=== PATIENT | female | born 1995 | race Two or more races ===

== ENCOUNTER 2018-12-06 18:11 | Emergency (ER) | payer SELFPAY ==
[2018-12-06 19:00] LABS: ABSOLUTE EOSINOPHILS # (AUTO) 0.2 10^3/uL (0.0-0.6); ABSOLUTE LYMPHOCYTES (AUTO) 2.6 10^3/uL (0.5-4.7); ABSOLUTE MONOCYTES (AUTO) 0.6 10^3/uL (0.1-1.4); ABSOLUTE NEUT (AUTO) 4.1 10^3/uL (1.7-8.2); BASOPHILS % (AUTO) 0.5 % (0-2); EOSINOPHILS % (AUTO) 2.8 % (0-6); HEMATOCRIT 42.9 % (36.0-47.0); HEMOGLOBIN 14.8 g/dL (12.0-15.5); LYMPHOCYTES % (AUTO) 34.3 % (13-45); MEAN CORPUSCULAR HEMOGLOBIN 32.7 pg (27.0-33.4); MEAN CORPUSCULAR HGB CONC 34.5 g/dL (32.0-36.0); MEAN CORPUSCULAR VOLUME 95 fl (80-97); MONOCYTES % (AUTO) 8.2 % (3-13); PLATELET COUNT 261 10^3/uL (150-450); RED BLOOD COUNT 4.52 10^6/uL (3.72-5.28); RED CELL DISTRIBUTION WIDTH 13.1 % (11.5-14.0); SEGMENTED NEUTROPHILS % (AUTO) 54.2 % (42-78); TOTAL CELLS COUNTED % (AUTO) 100 %; WHITE BLOOD COUNT 7.7 10^3/uL (4.0-10.5)
[2018-12-06 19:10] LABS: APPEARANCE,URINE CLEAR; BILIRUBIN,URINE NEGATIVE (NEGATIVE); COLOR,URINE COLORLESS; GLUCOSE, URINE NEGATIVE (NEGATIVE); KETONES,URINE NEGATIVE (NEGATIVE); LEUKOCYTE ESTERASE,URINE NEGATIVE (NEGATIVE); NITRITE,URINE NEGATIVE (NEGATIVE); PROTEIN,URINE NEGATIVE (NEGATIVE); URINE SPECIFIC GRAVITY 1.002; UROBILINOGEN,URINE NEGATIVE mg/dL (<2.0)
[2018-12-06 19:20] LABS: ALBUMIN 4.2 g/dL (3.5-5.0); ALKALINE PHOSPHATASE 58 U/L (38-126); ANION GAP 10 (5-19); ASPARTATE AMINO TRANSFERASE 24 U/L (14-36); BILIRUBIN,DIRECT 0.1 mg/dL (0.0-0.4); BILIRUBIN,TOTAL 0.2 mg/dL (0.2-1.3); BLOOD UREA NITROGEN 11 mg/dL (7-20); CALCIUM 9.7 mg/dL (8.4-10.2); CARBON DIOXIDE 23 mmol/L (22-30); CHLORIDE 106 mmol/L (98-107); GLUCOSE 91 mg/dL (75-110); POTASSIUM 3.9 mmol/L (3.6-5.0); TOTAL PROTEIN 6.8 g/dL (6.3-8.2)
--- NOTE | 2018-12-06 19:23 | ER Document Report ---
ED General - General Chief Complaint: OB Problem (<20wks) Stated Complaint: BLEEDING WITH Time Seen by Provider: 12/06/18 18:47 Notes: Patient is a 23-year-old female, G1, P0 approximately 5 weeks gravid that presents to the emergency department for chief complaint of vaginal bleeding, and pelvic cramping. Patient states she started having some mild lower abdominal cramping and pelvic cramping earlier this evening, and had some s potting, and has since resolved, and she was concerned so she came to the ED to have this evaluated. She states the first date of her last menstrual period was October 29. She has not had a formal [facility] office visit yet. She states that her cramping has eased up, she denies having any nausea, vomiting, fevers, chills, dysuria, hematuria no other complaints at this time. Past Medical History: Denies chronic medical conditions Past Surgical History: Denies surgical history Social History: Denies tobacco, alcohol or drug use. Family History: Reviewed and noncontributory for presenting illness Allergies: Reviewed, see documented allergy list. REVIEW OF SYSTEMS: Other than noted above, the 12 point review of systems was reviewed with the patient and were negative, all pertinent findings are included in the HPI. PHYSICAL EXAMINATION: Vital signs reviewed, nursing noted reviewed. GENERAL: Well-appearing, well-nourished and in no acute distress. HEAD: Atraumatic, normocephalic. EYES: Eyes appear normal, extraocular movements intact, sclera anicteric, conjunctiva are normal. ENT: nares patent, oropharynx clear without exudates. Moist mucous membranes. NECK: Normal range of motion, supple without lymphadenopathy LUNGS: Breath sounds clear to auscultation bilaterally and equal. No wheezes rales or rhonchi. HEART: Regular rate and rhythm without murmurs ABDOMEN: Soft, nontender, normoactive bowel sounds. No rebound, guarding, or rigidity. No masses appreciated. EXTREMITIES: Nontender, good range of motion, no pitting or edema. NEUROLOGICAL: No focal neurological deficits. Moves all extremities spontaneously Motor and sensory grossly intact on exam. PSYCH: Normal mood, normal affect. SKIN: Warm, Dry, normal turgor, no rashes or lesions noted on exposed skin TRAVEL OUTSIDE OF THE [place] IN LAST 30 DAYS: No - Related Data Allergies/Adverse Reactions: No Known Allergies Allergy (Verified 12/06/18 18:12) Past Medical History - Social History Smoking Status: Never Smoker Frequency of alcohol use: None Drug Abuse: None Family History: Reviewed & Not Pertinent Patient has suicidal ideation: No Patient has homicidal ideation: No Renal/ Medical History: Denies: Hx Peritoneal Dialysis Physical Exam - Vital signs Vitals: Temp Pulse Resp BP Pulse Ox 99.0 F 85 14 140/79 H 99 12/06/18 18:21 12/06/18 18:21 12/06/18 18:21 12/06/18 18:21 12/06/18 18:21 Course - Re-evaluation Re-evalutation: Patient seen and examined, vital signs reviewed. Patient appeared well on exam, no acute distress. No abdominal tenderness. Patient was worked up for vaginal bleeding in early with bloodwork, quantitative HCG, and transvaginal US. Patient's work-up was evaluated, was unremarkable, UA negative with exception of a small amount of blood, patient's transvaginal ultrasound was reviewed, there is no notable intrauterine , nor was there an extrauterine , recommend a follow-up, her hCG was less than 1000, so it is difficult to say whether this is too early in , and the patient's dates are off, or that she had a miscarriage, at this point I advised that the patient have repeat hCG testing, she is advised to follow-up with the health department to do this, she is also given a prescription to have it done in the laboratory in 2 days. Patient was agreeable and discharged home. Laboratory 12/06/18 12/06/18 12/06/18 18:50 18:50 18:50 WBC 7.7 RBC 4.52 Hgb 14.8 Hct 42.9 MCV 95 MCH 32.7 MCHC 34.5 RDW 13.1 Plt Count 261 Seg Neutrophils % 54.2 Lymphocytes % 34.3 Monocytes % 8.2 Eosinophils % 2.8 Basophils % 0.5 Absolute Neutrophils 4.1 Absolute Lymphocytes 2.6 Absolute Monocytes 0.6 Absolute Eosinophils 0.2 Absolute Basophils 0.0 Sodium 139.0 Potassium 3.9 Chloride 106 Carbon Dioxide 23 Anion Gap 10 BUN 11 Creatinine 0.61 Est GFR ( Amer) > 60 Est GFR (Non-Af Amer) > 60 Glucose 91 Calcium 9.7 Total Bilirubin 0.2 Direct Bilirubin 0.1 Neonat Total Bilirubin Not Reportable Neonat Direct Bilirubin Not Reportable Neonat Indirect Bili Not Reportable AST 24 ALT 18 Alkaline Phosphatase 58 Total Protein 6.8 Albumin 4.2 Beta HCG, Quant Cancelled Total Beta HCG Cancelled Urine Color Urine Appearance Urine pH Ur Specific Hendrix Urine Protein Urine Glucose (UA) Urine Ketones Urine Blood Urine Nitrite Urine Bilirubin Urine Urobilinogen Ur Leukocyte Esterase Urine WBC (Auto) Urine RBC (Auto) Squamous Epi Cells Auto Urine Mucus (Auto) Urine Ascorbic Acid Urine HCG, Qual Blood Type Rhogam Indicated 12/06/18 12/06/18 12/06/18 18:50 18:50 18:55 WBC RBC Hgb Hct MCV MCH MCHC RDW Plt Count Seg Neutrophils % Lymphocytes % Monocytes % Eosinophils % Basophils % Absolute Neutrophils Absolute Lymphocytes Absolute Monocytes Absolute Eosinophils Absolute Basophils Sodium Potassium Chloride Carbon Dioxide Anion Gap BUN Creatinine Est GFR ( Amer) Est GFR (Non-Af Amer) Glucose Calcium Total Bilirubin Direct Bilirubin Neonat Total Bilirubin Neonat Direct Bilirubin Neonat Indirect Bili AST ALT Alkaline Phosphatase Total Protein Albumin Beta HCG, Quant 686.66 H Total Beta HCG POSITIVE Urine Color COLORLESS Urine Appearance CLEAR Urine pH 7.0 Ur Specific Hendrix 1.002 Urine Protein NEGATIVE Urine Glucose (UA) NEGATIVE Urine Ketones NEGATIVE Urine Blood SMALL H Urine Nitrite NEGATIVE Urine Bilirubin NEGATIVE Urine Urobilinogen NEGATIVE Ur Leukocyte Esterase NEGATIVE Urine WBC (Auto) 2 Urine RBC (Auto) 1 Squamous Epi Cells Auto 1 Urine Mucus (Auto) RARE Urine Ascorbic Acid NEGATIVE Urine HCG, Qual POSITIVE H Blood Type O POSITIVE Rhogam Indicated RHOGAM NOT INDICATED - Vital Signs Vital signs: Temp Pulse Resp BP Pulse Ox 99.0 F 85 14 140/79 H 99 12/06/18 18:21 12/06/18 18:21 12/06/18 18:21 12/06/18 18:21 12/06/18 18:21 - Laboratory Result Diagrams: 12/06/18 18:50 12/06/18 18:50 Laboratory results interpreted by me: 12/06/18 12/06/18 18:50 18:55 Beta HCG, Quant 686.66 H Urine Blood SMALL H Urine HCG, Qual POSITIVE H Discharge - Discharge Clinical Impression: Vaginal bleeding in Condition: Stable Disposition: HOME, SELF-CARE Instructions: Bleeding During Early ([facility]) Additional Instructions: Please follow-up with the health department, to have a repeat quantitative hCG performed in 2 days, call for an appointment. Forms: Follow-Up Laboratory Testing Referrals: HEALTH DEPT,[facility] [NO LOCAL MD] - 12/08/18
[2018-12-06 22:53] VITALS: BP 136/80
== END 2018-12-06 22:54 | disposition home or self-care (01) ==
LOC: ER 18:11
DX: O46.91 Antepartum hemorrhage, unspecified, first trimester (principal); O26.891 Other specified pregnancy related conditions, first trimester; R10.2 Pelvic and perineal pain; R10.30 Lower abdominal pain, unspecified; Z3A.01 Less than 8 weeks gestation of pregnancy
CPT/HCPCS: 36415; 76817; 80053; 81001; 81025; 84702; 85025; 86900; 86901; 93976; 99284

== ENCOUNTER → 2018-12-08 | Outpatient (CLI) | payer SELFPAY | LOC: LAB 08:16 | PROVIDERS: ATTEND Emergency Medicine | DX: O46.90 Antepartum hemorrhage, unspecified, unspecified trimester (principal); Z3A.00 Weeks of gestation of pregnancy not specified | CPT/HCPCS: 36415; 84702 ==

== ENCOUNTER 2018-12-09 18:00 | Emergency (ER) | payer SELFPAY ==
--- NOTE | 2018-12-09 18:52 | ER Document Report ---
ED Medical Screen (RME) - General Chief Complaint: Vag Bleeding, +preg <12wks Stated Complaint: VAGINAL BLEEDING <20 WEEKS TRAVEL OUTSIDE OF THE [place] IN LAST 30 DAYS: No - HPI Notes: 12/09/18 18:51 Patient is a 23-year-old female G1, P0 approximately 6 weeks who presents complaining of pelvic cramping and vaginal bleeding that began again today around 2 PM. Patient was seen 3 days ago for spotting. Her hCG was reche cked yesterday and came up to approx 200 points. Patient states that had worsening cramping and heavier bleeding today with passing small clots. She presents for reevaluation. She is scheduled without department on Friday. Denies SOMERS, fever, neck pain, URI, CP, SOB, Abd pain, dysuria, back pain, or rash. I have treated and performed a rapid initial assessment of this patient. A comprehensive ED assessment and evaluation of the patient, analysis of test results and completion of medical decision making process will be conducted by additional ED providers. PHYSICAL EXAMINATION: GENERAL: Well-appearing, well-nourished and in no acute distress. A&Ox4. Answers questions appropriately. LUNGS: Breath sounds clear to auscultation bilaterally and equal. No wheezes rales or rhonchi. HEART: Regular rate and rhythm without murmurs, rubs, gallops. ABDOMEN: Soft, nondistended abdomen. No guarding, no rebound. Normal bowel sounds present. No CVA tenderness bilaterally. grossly nontender (cannot elicit thorough abd exam w/o bed, however). - Related Data Allergies/Adverse Reactions: No Known Allergies Allergy (Verified 12/09/18 18:07) Past Medical History Renal/ Medical History: Denies: Hx Peritoneal Dialysis Physical Exam - Vital signs Vitals: Temp Pulse Resp BP Pulse Ox 98.6 F 91 16 138/76 H 98 12/09/18 18:11 12/09/18 18:11 12/09/18 18:11 12/09/18 18:11 12/09/18 18:11 Course - Vital Signs Vital signs: Temp Pulse Resp BP Pulse Ox 98.6 F 91 16 138/76 H 98 12/09/18 18:11 12/09/18 18:11 12/09/18 18:11 12/09/18 18:11 12/09/18 18:11
[2018-12-09 19:37] LABS: ABSOLUTE EOSINOPHILS # (AUTO) 0.1 10^3/uL (0.0-0.6); ABSOLUTE LYMPHOCYTES (AUTO) 1.8 10^3/uL (0.5-4.7); ABSOLUTE MONOCYTES (AUTO) 0.7 10^3/uL (0.1-1.4); BASOPHILS % (AUTO) 0.4 % (0-2); EOSINOPHILS % (AUTO) 1.5 % (0-6); HEMATOCRIT 42.1 % (36.0-47.0); HEMOGLOBIN 14.1 g/dL (12.0-15.5); LYMPHOCYTES % (AUTO) 20.5 % (13-45); MEAN CORPUSCULAR HEMOGLOBIN 32.2 pg (27.0-33.4); MEAN CORPUSCULAR HGB CONC 33.4 g/dL (32.0-36.0); MEAN CORPUSCULAR VOLUME 96 fl (80-97); MONOCYTES % (AUTO) 8.4 % (3-13); PLATELET COUNT 224 10^3/uL (150-450); RED BLOOD COUNT 4.38 10^6/uL (3.72-5.28); SEGMENTED NEUTROPHILS % (AUTO) 69.2 % (42-78); TOTAL CELLS COUNTED % (AUTO) 100 %; WHITE BLOOD COUNT 8.7 10^3/uL (4.0-10.5)
[2018-12-09 20:44] LABS: APPEARANCE,URINE CLEAR; BILIRUBIN,URINE NEGATIVE (NEGATIVE); COLOR,URINE YELLOW; GLUCOSE, URINE NEGATIVE (NEGATIVE); KETONES,URINE NEGATIVE (NEGATIVE); LEUKOCYTE ESTERASE,URINE NEGATIVE (NEGATIVE); NITRITE,URINE NEGATIVE (NEGATIVE); PROTEIN,URINE NEGATIVE (NEGATIVE); URINE SPECIFIC GRAVITY 1.019; UROBILINOGEN,URINE NEGATIVE mg/dL (<2.0)
--- NOTE | 2018-12-09 21:42 | RADIOLOGY REPORT (SQ) ---
US PELVIS EXAM DATE: 12/09/2018 6:30 PM CDT HISTORY: Early . Pelvic pain. COMPARISON: None. TECHNIQUE: Grayscale, color Doppler, and spectral Doppler ultrasound images of the pelvis were obtained. FINDINGS: There is an intrauterine gestational sac with a mean sac diameter of 0.3 cm corresponding to 5 weeks 0 days of . No yolk sac or pole is seen at this time. The ovaries are normal in size and contains normal color Doppler blood flow. There is a 1.2 cm anechoic cyst in the left ovary. No pelvic free fluid. IMPRESSION: Early gestational sac corresponding to 5 weeks 0 days of . No yolk sac or pole is seen at this time. Findings may represent early . Recommend short-term follow-up ultrasound imaging.
--- NOTE | 2018-12-09 22:12 | ER Document Report ---
ED General - General Chief Complaint: Vag Bleeding, +preg <12wks Stated Complaint: VAGINAL BLEEDING <20 WEEKS Time Seen by Provider: 12/09/18 19:14 [facility] Provider[facility] [Provider [facility]] - Follow up in 3-5 days VERENICE CARRION MD [Primary Care Provider] - Follow up as needed Notes: Patient is a G1, P0 23-year-old female who presents to the emergency department with a chief complaint of vaginal bleeding during . She was seen in the emergency department a few days ago for spotting. Her last menstrual cycle was October 29. Today the patient stated that she had increased bleeding with some clots and some sharp cramps around 1430 this afternoon. Patient denies any past medical history. She is currently taking vitamins. TRAVEL OUTSIDE OF THE [place] IN LAST 30 DAYS: No - Related Data Allergies/Adverse Reactions: No Known Allergies Allergy (Verified 12/09/18 18:07) Past Medical History - Social History Smoking Status: Never Smoker Chew tobacco use (# tins/day): No Frequency of alcohol use: None Drug Abuse: None Family History: Reviewed & Not Pertinent Patient has suicidal ideation: No Patient has homicidal ideation: No Renal/ Medical History: Denies: Hx Peritoneal Dialysis Review of Systems - Review of Systems Notes: REVIEW OF SYSTEMS: CONSTITUTIONAL : Denies recent illness. Denies recent unintentional weight loss. Denies fever, chills, or sweats. EENT: Denies eye, ear, throat, or mouth pain, discharge, or symptoms. Denies nasal or sinus congestion. CARDIOVASCULAR: Denies chest pain. RESPIRATORY: Denies shortness of breath, cough, congestion, difficulty breathing, or wheezing. GASTROINTESTINAL: Denies nausea, vomiting, and diarrhea. Denies abdominal pain. Denies constipation. GENITOURINARY: Denies difficulty urinating, burning, blood in urine, urgency or frequency. MUSCULOSKELETAL: Denies neck and back pain. Denies joint pain or swelling. SKIN: Denies rash, itchiness, or lesions HEMATOLOGIC : Denies easy bruising or bleeding. LYMPHATIC: Denies swollen, painful, enlarged glands. NEUROLOGICAL: Denies no numbness or tingling denies weakness. Denies headache. Denies altered mental status. Denies alteration in speech. PSYCHIATRIC: Denies stress, anxiety, alteration in sleep patterns, or depression. All other systems reviewed and negative. Physical Exam - Vital signs Vitals: Temp Pulse Resp BP Pulse Ox 98.6 F 91 16 138/76 H 98 12/09/18 18:11 12/09/18 18:11 12/09/18 18:11 12/09/18 18:11 12/09/18 18:11 - Notes Notes: PHYSICAL EXAMINATION: GENERAL: Appears well, healthy, well-nourished, no acute distress. HEAD: Normocephalic, atraumatic. EYES: PERRL, conjunctiva normal, all extraocular movements intact, sclera nonicteric ENT: Moist mucous membranes. NECK: Supple, no noticeable swelling, redness, rash. Normal range of motion. LUNGS: Equal breath sounds bilaterally and clear to auscultation. No wheezes rales or rhonchi. CARDIOVASCULAR: S1-S2, regular rate, regular rhythm. Radial pulses 2+, normal. ABDOMEN: Normoactive bowel sounds. Soft, mildly tender mid lower abdomen, no guarding, no rebound tenderness, and no masses palpated. EXTREMITIES: Normal strength and range of motion, no pitting or edema. No cyanosis. NEUROLOGICAL: Moves all extremities upon command. Strength 5/5 in all extremities. PSYCH: Normal mood, normal affect. SKIN: Warm, dry. No rash, lesions, ulcerations noted. Normal skin turgor. Course - Re-evaluation Re-evalutation: 12/09/18 22:00 Patient's hematology is stable. No anemia noted. Her chemistries show a beta hCG of 941. This is a slight increase from the other day. Her urinalysis shows that she has a large amount of blood in her urine. This is consistent with the patient having vaginal bleeding. Transvaginal ultrasound shows a 5 weeks 0-day early gestational sac. The other day her ultrasound showed a 5-week 2-day , but I suspect the patient is too early to actually fine see anything at this time. I discussed these results with the patient and discussed that I would like her to be on pelvic precautions. She is in agreement with this plan. She will follow[facility]up with [facility] in regards to this visit. Patient states that the bleeding has subsided. States that she has some cramping. I will give her a dose of Tylenol. There is no ectopic , tubo-ovarian torsion, or any life-threatening etiology at this time. Patient denies any vaginal discharge. I have a very low suspicion for pelvic inflammatory disease. Her vital signs are stable. Follow-up precautions were given. Verbal discharge instructions were given to the patient. They verbalized understanding. They are stable for discharge. Documentation was completed using voice recognition software, therefore there may be some unintended grammatical or punctual errors. - Vital Signs Vital signs: Temp Pulse Resp BP Pulse Ox 99.0 F 77 18 122/65 97 12/09/18 22:17 12/09/18 22:17 12/09/18 22:17 12/09/18 22:17 12/09/18 22:17 - Laboratory Result Diagrams: 12/09/18 19:06 Laboratory results interpreted by me: 12/09/18 12/09/18 19:06 19:06 Beta HCG, Quant 941.72 H Urine Blood LARGE H Discharge - Discharge Clinical Impression: Vaginal bleeding in Condition: Stable Disposition: HOME, SELF-CARE Additional Instructions: Your ultrasound today shows an intrauterine . Please follow closely with your primary care [employer]. Please return if you develop severe abdominal pain, bleeding that goes through more than 2 pads for more than 2 hours, pass out, or have any other symptoms that are concerning to you. Please follow-up closely with your OBGYN regarding todays visit. Please do not have sex or place anything in your vagina. Referrals: VERENICE CARRION MD [Primary Care Provider] - Follow up as needed [facility] [Provider Group] - Follow up in 3-5 days
[2018-12-09] MEDS ORDERED: ACETAMINOPHEN 325 MG TABLET PO ONE (22:16)
[2018-12-09 22:23] VITALS: BP 122/65
== END 2018-12-09 22:23 | disposition home or self-care (01) ==
LOC: ER 18:00
DX: O20.9 Hemorrhage in early pregnancy, unspecified (principal); O26.891 Other specified pregnancy related conditions, first trimester; R25.2 Cramp and spasm; Z3A.01 Less than 8 weeks gestation of pregnancy
CPT/HCPCS: 36415; 76817; 81001; 84702; 85025; 93976; 99284